=== PATIENT | female | born 1995 | race African-American/Black ===

== ENCOUNTER 2023-08-03 23:14 | Emergency (ER) | payer OTHER ==
[~2023-08-03] VITALS: Ht 165.1 cm; Wt 72.6 kg
[2023-08-03 23:36] VITALS: BP 135/89; PULSE 65; RESP 18; TEMP 98; O2SAT 100
[2023-08-04 00:30] VITALS: O2SAT 100
[2023-08-04] MEDS ORDERED: ACETAMINOPHEN EXTRA STRENGTH 500 MG TAB PO ONE (02:45)
[2023-08-04] MEDS ORDERED: IBUP-2213 PO (04:33)
[2023-08-04] MEDS ORDERED: LID5T TP (04:33)
== END 2023-08-04 04:55 | disposition home or self-care (01) ==
LOC: MED 23:14
DX: S13.4XXA Sprain of ligaments of cervical spine, initial encounter (principal); S20.212A Contusion of left front wall of thorax, initial encounter; S09.90XA Unspecified injury of head, initial encounter; Y08.89XA Assault by other specified means, initial encounter; Y93.89 Activity, other specified; Y92.89 Other specified places as the place of occurrence of the external cause; Y99.8 Other external cause status
CPT/HCPCS: 70450; 70486; 71045; 72125; 99284; Q0092

== ENCOUNTER 2023-08-23 07:55 | Emergency (ER) | payer OTHER ==
[~2023-08-23] VITALS: Ht 162.6 cm; Wt 74.8 kg
[~2023-08-23 07:55] MED LIST: IBUP-2213 PO; LID5T TP
[2023-08-23 08:08] VITALS: BP 138/86; PULSE 87; RESP 16; TEMP 98.1; O2SAT 100
[2023-08-23 08:39] VITALS: TEMP 98.1
[2023-08-23] MEDS: NACL 0.9% 1,000 ML IV ONE (09:46)
[2023-08-23] MEDS: METOCLOPRAMIDE 10 MG/2 ML INJ VIAL IVP ONE (09:47)
[2023-08-23] MEDS: KETOROLAC 30 MG/ML VIAL IVP ONE (09:54)
[2023-08-23] MEDS: diphenhydrAMINE 50 MG/ML VIAL IVP ONE (09:56)
[2023-08-23] MEDS ORDERED: ACET-10509 PO (10:28)
[2023-08-23] MEDS ORDERED: IBUP-2213 PO (10:28)
[2023-08-23] MEDS ORDERED: METH-1681 PO (10:28)
[2023-08-23 10:50] VITALS: BP 135/79; PULSE 76; RESP 18; O2SAT 100
== END 2023-08-23 10:50 | disposition home or self-care (01) ==
LOC: MED 07:55
DX: S16.1XXA Strain of muscle, fascia and tendon at neck level, initial encounter (principal); S06.0X0A Concussion without loss of consciousness, initial encounter; Z90.49 Acquired absence of other specified parts of digestive tract; Z79.899 Other long term (current) drug therapy; Z88.0 Allergy status to penicillin; Y08.89XA Assault by other specified means, initial encounter; Y93.89 Activity, other specified; Y92.89 Other specified places as the place of occurrence of the external cause; Y99.8 Other external cause status
CPT/HCPCS: 81025; 96361; 96374; 96375; 99284; J1200; J1885; J2765; J7030

== ENCOUNTER 2023-08-24 07:16 | Emergency (ER) | payer OTHER ==
[~2023-08-24] VITALS: Ht 165.1 cm; Wt 74.8 kg
[~2023-08-24 07:16] MED LIST changes: +ACET-10509 PO; +METH-1681 PO
[2023-08-24 07:22] VITALS: BP 154/103; PULSE 77; RESP 18; TEMP 98.1; O2SAT 100
[2023-08-24 07:38] VITALS: BP 130/93; PULSE 66; RESP 12; TEMP 98.1; O2SAT 100
== END 2023-08-24 10:55 | disposition home or self-care (01) ==
LOC: MED 07:16
DX: S06.0X0A Concussion without loss of consciousness, initial encounter (principal); Z90.49 Acquired absence of other specified parts of digestive tract; Z79.899 Other long term (current) drug therapy; Z88.0 Allergy status to penicillin; Y08.89XA Assault by other specified means, initial encounter; Y93.89 Activity, other specified; Y92.89 Other specified places as the place of occurrence of the external cause; Y99.8 Other external cause status
CPT/HCPCS: 70450; 99284